=== PATIENT | female | born 1995 | race Caucasian/White ===

== ENCOUNTER 2025-01-28 21:17 | Emergency (ER) | payer BC, MEDICAID ==
[2025-01-28 21:47] LABS: APPEARANCE,URINE CLEAR; GLUCOSE,URINE NEGATIVE (NEGATIVE); OCCULT BLOOD,URINE TRACE-INTACT (NEGATIVE)
[2025-01-28 21:59] LABS: BASOPHILS ABSOLUTE AUTO 0.01 K/uL (0.00-0.20); BASOPHILS PERCENT AUTO 0.1 % (0.0-2.0); EOSINOPHILS ABSOLUTE AUTO 0.18 K/uL (0.00-0.50); EOSINOPHILS PERCENT AUTO 2.1 % (0.0-5.0); IMMATURE GRAN ABSOLUTE AUTO 0.01 10^3/uL (0.00-0.04); IMMATURE GRAN PERCENT AUTO 0.1 % (0.0-0.4); LYMPHOCYTES ABSOLUTE AUTO 2.71 K/uL (0.50-3.50); LYMPHOCYTES PERCENT AUTO 32.0 % (10.0-50.0); MONOCYTES ABSOLUTE AUTO 0.73 K/uL (0.00-1.00); MONOCYTES PERCENT AUTO 8.6 % (2.0-14.0); NEUTROPHILS ABSOLUTE AUTO 4.82 K/uL (1.40-7.00); NEUTROPHILS PERCENT AUTO 57.1 % (45.0-80.0); PLATELET COUNT,PLT 256 K/uL (150-350); RED BLOOD CELL COUNT 4.60 M/uL (3.77-5.09); RED CELL DISTRIBUTION WIDTH 11.8 % (11.2-14.1); WHITE BLOOD CELL COUNT,WBC 8.5 K/uL (4.0-10.2)
[2025-01-28 22:01] LABS: EPITHELIAL CELLS,URINE MANY /LPF
[2025-01-28 22:13] LABS: ALANINE AMINOTRANSFERASE,ALT 61 U/L (12-78); ASPARTATE AMNIOTRANSFERASE,AST 51 U/L (15-37); BILIRUBIN TOTAL 0.4 mg/dL (0.2-1.0); BLOOD UREA NITROGEN,BUN 10 mg/dL (7-18); CARBON DIOXIDE,CO2 23.9 mmol/L (21.0-32.0); CHLORIDE,CL 106 mmol/L (98-107); CREATININE 0.83 mg/dL (0.51-1.17); GLUCOSE RANDOM 83 mg/dL (70-99); POTASSIUM,K 3.5 mmol/L (3.5-5.1); PROTEIN TOTAL,TP 7.2 g/dL (6.4-8.2); SODIUM,NA 140 mmol/L (136-145)
[2025-01-28 22:14] LABS: ESTIMATED GFR 98 mL/min (>=60)
[2025-01-28] MEDS: Acetaminophen/oxyCODONE 325-5 MG Tab PO ONE (22:47)
[2025-01-28] MEDS: Ondansetron 4 MG Tab.DIS PO ONE (22:47)
[2025-01-28] MEDS: Take Home: oxyCODONE HCl 5 MG Tab, 5 Tab Pack PO ONE (23:54)
[2025-01-29 00:11] VITALS: BP 110/71; PULSE 66
== END 2025-01-28 23:58 | disposition home or self-care (01) ==
LOC: LL.ED 21:17
DX: N20.0 Calculus of kidney (principal); F17.200 Nicotine dependence, unspecified, uncomplicated; Z88.1 Allergy status to other antibiotic agents; Z79.899 Other long term (current) drug therapy
CPT/HCPCS: 36415; 74176; 80053; 81001; 85025; 99284; A9270-GY